=== PATIENT | male | born 1970 | race Caucasian/White ===

== ENCOUNTER 2016-05-14 08:23 | Emergency (ER) | payer OTHER ==
[~2016-05-14 08:23] MED LIST: CIPRO; NORCO 5-325 TA1 EACH PO; PRILOSEC OTC20 M1 PO; PROTONIX40 M2 PO; [UNRECOGNIZED DRUG - OTHER]
[2016-11-11] MEDS ORDERED: PROTONIX20 M2 PO (10:01)
== END 2016-05-14 09:56 ==
LOC: EDMED 08:23
DX: R07.2 Precordial pain (principal); G47.30 Sleep apnea, unspecified